=== PATIENT | male | born 1940 | race Caucasian/White ===

== ENCOUNTER 2021-11-18 11:59 | Observation (INO) ==
[2021-11-18 14:03] LABS: Basophils % 0.4 % (0.0-0.8); Eosinophils # 0.1 10*3/uL (0.0-0.87); Eosinophils % 0.5 % (0.00-10.9); Hematocrit 39.5 VOL% (42.0-52.0); Hemoglobin 13.3 GM/DL (14.0-18.0); Immature Granulocytes % 0.6 %; Immature Granulocytes Absolute 0.06 #; Lymphocytes # 2.4 10*3/uL (1.4-4.0); Lymphocytes % 25.3 % (21.2-54.2); Mean Corpuscular HGB Conc 33.7 GM/DL (32-36); Mean Corpuscular Volume 91.4 FL (87-102); Monocytes % 7.1 % (1.7-12.7); Neutrophils % 66.1 % (38.7-73.9); Platelet Count 145 T/CUMM (130-400); Red Blood Count 4.32 MC/CUMM (3.8-5.5); Red Cell Distribution Width 13.8 % (9.3-17.3); White Blood Count 9.5 T/CUMM (4-12)
[2021-11-18 14:19] LABS: Albumin 3.3 G/DL (3.4-5.0); Calcium 8.7 MG/DL (8.5-10.1); Osmolality,Calculated 276.7 MOS/KG (273-304); Potassium 4.2 MMOL/L (3.5-5.1); Total Protein 6.4 G/DL (6.4-8.2)
[2021-11-18 14:23] LABS: INR 1.1; PT Patient Result 11.7 SECS (10.5-12.0); Partial Thromboplastin Time 28.9 SECS (23.8-32.1)
[2021-11-18 16:08] LABS: Mucus,Urine Occasional /LPF (Occasional); RBC,Urine 1 /HPF (0-4); Squamous Epithelial Cell,Urine Occasional /HPF (0-10)
[2021-11-18 16:10] LABS: Bilirubin,Urine Negative (Negative); Blood, Urine Negative (Negative); Glucose,Urine (UA) Negative (Negative); Ketones,Urine Negative (Negative); Nitrite,Urine Negative (Negative); Protein,Urine Negative (Negative); Urine Appearance Clear (Clear); Urine Color Yellow (Yellow); Urine Specific Gravity 1.015 (1.001-1.035); Urine Urobilinogen 0.2 eU/dL (<2.0); Urine pH 8.5 (4.5-8.0)
[2021-11-18] MEDS ORDERED: GLUCAGON 1 MG VIAL IM PRN (17:45)
[2021-11-18] MEDS ORDERED: ACETAMINOPHEN 325 MG TABLET PO PRN (17:45)
[2021-11-18] MEDS ORDERED: ONDANSETRON 4 MG/2 ML VIAL IV PRN (17:45)
[2021-11-18] MEDS ORDERED: DEXTROSE 10% 250 ML BAG IV PRN ×2 (17:52→17:56)
[2021-11-18] MEDS ORDERED: ENOXAPARIN 40 MG/0.4 ML SYRINGE SUBCUT SCH (18:00)
[2021-11-18 18:54] LABS: Risk Ratio 3.14; Thyroid Stimulating Hormone 4.71 uIU/ml (0.358-3.74)
[2021-11-18] MEDS: DOCUSATE SODIUM 100 MG CAPSULE PO SCH (21:00)
[2021-11-18] MEDS: atenoloL 50 MG TABLET PO SCH (21:00)
[2021-11-18] MEDS: MONTELUKAST 10 MG TABLET PO SCH (21:00)
[2021-11-18] MEDS: INSULIN LISPRO 100 UNIT/ML SUBCUT SCH (21:19)
[2021-11-19 04:10] LABS: Basophils # 0.1 10*3/uL (0.0-0.2); Basophils % 0.7 % (0.0-0.8); Eosinophils # 0.2 10*3/uL (0.0-0.87); Eosinophils % 2.1 % (0.00-10.9); Hematocrit 40.8 VOL% (42.0-52.0); Hemoglobin 13.8 GM/DL (14.0-18.0); Immature Granulocytes % 0.5 %; Immature Granulocytes Absolute 0.04 #; Lymphocytes % 36.4 % (21.2-54.2); Mean Corpuscular HGB Conc 33.8 GM/DL (32-36); Mean Corpuscular Volume 91.3 FL (87-102); Mean Platelet Volume 11.1 FL (9.6-12.0); Monocytes % 7.6 % (1.7-12.7); Neutrophils % 52.7 % (38.7-73.9); Platelet Count 154 T/CUMM (130-400); Red Blood Count 4.47 MC/CUMM (3.8-5.5); White Blood Count 8.1 T/CUMM (4-12)
[2021-11-19 04:30] LABS: Osmolality,Calculated 269.2 MOS/KG (273-304)
[2021-11-19] MEDS: INSULIN LISPRO 100 UNIT/ML SUBCUT SCH ×4 (08:41→20:41)
[2021-11-19] MEDS: MULTIVITAMIN (CENTRUM) TABLET PO SCH (08:47)
[2021-11-19] MEDS: TAMSULOSIN 0.4 MG CAPSULE PO SCH (08:47)
[2021-11-19] MEDS: DOCUSATE SODIUM 100 MG CAPSULE PO SCH ×2 (08:47→21:43)
[2021-11-19] MEDS: DULoxetine 30 MG CAPSULE PO SCH (08:47)
[2021-11-19] MEDS: ASPIRIN 325 MG TABLET PO SCH (08:47)
[2021-11-19] MEDS: metFORMIN 500 MG TABLET PO SCH ×2 (08:47→16:41)
[2021-11-19] MEDS: PANTOPRAZOLE 40 MG TABLET PO SCH (08:48)
[2021-11-19] MEDS: atenoloL 50 MG TABLET PO SCH ×2 (08:48→20:40)
[2021-11-19] MEDS: allopurinoL 300 MG TABLET PO SCH (08:48)
[2021-11-19] MEDS: ATORVASTATIN 40 MG TABLET PO SCH (08:48)
[2021-11-19] MEDS: TIMOLOL 0.5% OPH SOLN 5 ML BOTTLE BOTH EYES SCH (09:18)
[2021-11-19] MEDS: MONTELUKAST 10 MG TABLET PO SCH (20:40)
[2021-11-20 05:26] LABS: Basophils # 0.1 10*3/uL (0.0-0.2); Basophils % 0.6 % (0.0-0.8); Eosinophils # 0.4 10*3/uL (0.0-0.87); Eosinophils % 3.6 % (0.00-10.9); Hematocrit 43.3 VOL% (42.0-52.0); Hemoglobin 14.6 GM/DL (14.0-18.0); Immature Granulocytes % 0.6 %; Immature Granulocytes Absolute 0.06 #; Lymphocytes # 3.8 10*3/uL (1.4-4.0); Lymphocytes % 36.9 % (21.2-54.2); Mean Corpuscular HGB Conc 33.7 GM/DL (32-36); Mean Corpuscular Volume 91.7 FL (87-102); Mean Platelet Volume 11.7 FL (9.6-12.0); Monocytes % 6.9 % (1.7-12.7); Neutrophils % 51.4 % (38.7-73.9); Platelet Count 175 T/CUMM (130-400); Red Blood Count 4.72 MC/CUMM (3.8-5.5); Red Cell Distribution Width 13.8 % (9.3-17.3); White Blood Count 10.2 T/CUMM (4-12)
[2021-11-20 05:46] LABS: Albumin 3.3 G/DL (3.4-5.0); Bilirubin,Total 1.1 MG/DL (0.20-1.00); Calcium 8.8 MG/DL (8.5-10.1); Osmolality,Calculated 272.2 MOS/KG (273-304); Potassium 4.1 MMOL/L (3.5-5.1); Total Protein 7.1 G/DL (6.4-8.2)
[2021-11-20] MEDS: INSULIN LISPRO 100 UNIT/ML SUBCUT SCH ×4 (08:13→20:50)
[2021-11-20] MEDS: metFORMIN 500 MG TABLET PO SCH ×2 (09:31→17:09)
[2021-11-20] MEDS: TAMSULOSIN 0.4 MG CAPSULE PO SCH (09:31)
[2021-11-20] MEDS: DULoxetine 30 MG CAPSULE PO SCH (09:31)
[2021-11-20] MEDS: ASPIRIN 325 MG TABLET PO SCH (09:31)
[2021-11-20] MEDS: atenoloL 50 MG TABLET PO SCH ×2 (09:31→20:49)
[2021-11-20] MEDS: PANTOPRAZOLE 40 MG TABLET PO SCH (09:31)
[2021-11-20] MEDS: MULTIVITAMIN (CENTRUM) TABLET PO SCH (09:31)
[2021-11-20] MEDS: DOCUSATE SODIUM 100 MG CAPSULE PO SCH ×2 (09:32→22:06)
[2021-11-20] MEDS: ATORVASTATIN 40 MG TABLET PO SCH (09:32)
[2021-11-20] MEDS: allopurinoL 300 MG TABLET PO SCH (09:32)
[2021-11-20] MEDS: TIMOLOL 0.5% OPH SOLN 5 ML BOTTLE BOTH EYES SCH (09:35)
[2021-11-20] MEDS: CITALOPRAM 20 MG TABLET PO SCH (11:50)
[2021-11-20] MEDS: CHOLESTYRAMINE/ASPARTAME 4 GM PACK PO SCH (14:35)
[2021-11-20] MEDS: MONTELUKAST 10 MG TABLET PO SCH (20:49)
[2021-11-20] MEDS ORDERED: QUEtiapine 25 MG TABLET PO SCH (21:00)
[2021-11-20] MEDS ORDERED: LATANOPROST 0.005% OPH SOLN 2.5 ML BOTTLE BOTH EYES SCH (21:00)
[2021-11-21 05:43] LABS: Basophils # 0.1 10*3/uL (0.0-0.2); Basophils % 0.4 % (0.0-0.8); Eosinophils # 0.4 10*3/uL (0.0-0.87); Hematocrit 41.4 VOL% (42.0-52.0); Immature Granulocytes % 0.5 %; Immature Granulocytes Absolute 0.07 #; Lymphocytes # 4.1 10*3/uL (1.4-4.0); Lymphocytes % 30.5 % (21.2-54.2); Mean Corpuscular HGB Conc 33.8 GM/DL (32-36); Mean Platelet Volume 11.7 FL (9.6-12.0); Monocytes % 6.2 % (1.7-12.7); Neutrophils % 59.4 % (38.7-73.9); Platelet Count 183 T/CUMM (130-400); Red Blood Count 4.55 MC/CUMM (3.8-5.5); Red Cell Distribution Width 13.7 % (9.3-17.3); White Blood Count 13.5 T/CUMM (4-12)
[2021-11-21 06:05] LABS: Albumin 3.4 G/DL (3.4-5.0); Bilirubin,Total 0.8 MG/DL (0.20-1.00); Calcium 9.3 MG/DL (8.5-10.1); Osmolality,Calculated 276.1 MOS/KG (273-304); Potassium 4.1 MMOL/L (3.5-5.1); Total Protein 6.8 G/DL (6.4-8.2)
[2021-11-21] MEDS: INSULIN LISPRO 100 UNIT/ML SUBCUT SCH ×2 (08:15→12:01)
[2021-11-21] MEDS: MULTIVITAMIN (CENTRUM) TABLET PO SCH (08:16)
[2021-11-21] MEDS: TAMSULOSIN 0.4 MG CAPSULE PO SCH (08:16)
[2021-11-21] MEDS: ATORVASTATIN 40 MG TABLET PO SCH (08:16)
[2021-11-21] MEDS: DULoxetine 30 MG CAPSULE PO SCH (08:16)
[2021-11-21] MEDS: metFORMIN 500 MG TABLET PO SCH (08:16)
[2021-11-21] MEDS: allopurinoL 300 MG TABLET PO SCH (08:16)
[2021-11-21] MEDS: CITALOPRAM 20 MG TABLET PO SCH (08:16)
[2021-11-21] MEDS: atenoloL 50 MG TABLET PO SCH (08:16)
[2021-11-21] MEDS: DOCUSATE SODIUM 100 MG CAPSULE PO SCH (08:17)
[2021-11-21] MEDS: TIMOLOL 0.5% OPH SOLN 5 ML BOTTLE BOTH EYES SCH (08:17)
[2021-11-21] MEDS: CHOLESTYRAMINE/ASPARTAME 4 GM PACK PO SCH (08:17)
[2021-11-21] MEDS: ASPIRIN 325 MG TABLET PO SCH (08:17)
[2021-11-21] MEDS: PANTOPRAZOLE 40 MG TABLET PO SCH (08:17)
[2021-11-21 12:04] VITALS: BP 116/56
== END 2021-11-21 13:20 | disposition home health service (06) ==
LOC: EDUNIT# → EDBD → N.ED 11:59 → N.EDINP 11:59 → N.5E 11-19 12:36
PROVIDERS: ADMIT Internal Medicine; ATTEND Internal Medicine

== ENCOUNTER 2021-12-20 15:45 | Inpatient (IN) ==
[2021-12-20] MEDS ORDERED: DEXTROSE 50% 25 GM/50 ML VIAL IV PRN (17:55)
[2021-12-20] MEDS ORDERED: DOCUSATE SODIUM 100 MG CAPSULE PO PRN (17:55)
[2021-12-20] MEDS ORDERED: GLUCAGON 1 MG VIAL IM PRN (17:55)
[2021-12-20] MEDS ORDERED: ACETAMINOPHEN 325 MG TABLET PO PRN (17:55)
[2021-12-20] MEDS ORDERED: ONDANSETRON 4 MG/2 ML VIAL IV PRN (17:55)
[2021-12-20] MEDS ORDERED: DEXTROSE 10% 250 ML BAG IV PRN (18:12)
[2021-12-20] MEDS ORDERED: ACETAMINOPHEN 500 MG TABLET PO ONE (18:32)
[2021-12-20 18:42] LABS: Basophils % 0.1 % (0.0-0.8); Eosinophils % 0.1 % (0.00-10.9); Hematocrit 45.6 VOL% (42.0-52.0); Hemoglobin 15.3 GM/DL (14.0-18.0); Immature Granulocytes % 0.6 %; Immature Granulocytes Absolute 0.09 #; Lymphocytes # 2.5 10*3/uL (1.4-4.0); Lymphocytes % 15.9 % (21.2-54.2); Mean Corpuscular HGB Conc 33.6 GM/DL (32-36); Mean Corpuscular Volume 93.4 FL (87-102); Mean Platelet Volume 11.9 FL (9.6-12.0); Monocytes # 1.4 10*3/uL (0.11-0.8); Monocytes % 8.8 % (1.7-12.7); Neutrophils % 74.5 % (38.7-73.9); Platelet Count 149 T/CUMM (130-400); Red Blood Count 4.88 MC/CUMM (3.8-5.5); Red Cell Distribution Width 14.5 % (9.3-17.3); White Blood Count 15.5 T/CUMM (4-12)
[2021-12-20 19:08] LABS: Albumin 3.2 G/DL (3.4-5.0); Bilirubin,Total 1.4 MG/DL (0.20-1.00); Calcium 8.5 MG/DL (8.5-10.1); Osmolality,Calculated 274.4 MOS/KG (273-304); Potassium 4.7 MMOL/L (3.5-5.1); Total Protein 6.6 G/DL (6.4-8.2)
[2021-12-20] MEDS: ALBUTEROL/IPRATROPIUM 3 ML NEB RESP TX SCH (20:08)
[2021-12-20] MEDS ORDERED: ENOXAPARIN 40 MG/0.4 ML SYRINGE SUBCUT SCH (21:00)
[2021-12-20] MEDS: cefTRIAXone 2,000 MG in SODIUM CHLORIDE 0.9% 100 ML IV SCH (21:28)
[2021-12-20] MEDS: atenoloL 25 MG TABLET PO SCH (21:29)
[2021-12-20] MEDS: INSULIN REGULAR 100 UNIT/ML SUBCUT SCH (21:30)
[2021-12-20] MEDS: ATORVASTATIN 40 MG TABLET PO SCH (21:37)
[2021-12-20] MEDS: LATANOPROST 0.005% OPH SOLN 2.5 ML BOTTLE BOTH EYES SCH (21:37)
[2021-12-21] MEDS: ALBUTEROL/IPRATROPIUM 3 ML NEB RESP TX SCH ×4 (00:25→18:49)
[2021-12-21 01:46] LABS: Basophils % 0.2 % (0.0-0.8); Eosinophils % 0.3 % (0.00-10.9); Hematocrit 44.1 VOL% (42.0-52.0); Immature Granulocytes % 0.5 %; Immature Granulocytes Absolute 0.07 #; Lymphocytes # 2.4 10*3/uL (1.4-4.0); Lymphocytes % 16.4 % (21.2-54.2); Mean Platelet Volume 11.5 FL (9.6-12.0); Monocytes # 1.3 10*3/uL (0.11-0.8); Monocytes % 8.7 % (1.7-12.7); Neutrophils % 73.9 % (38.7-73.9); Platelet Count 138 T/CUMM (130-400); Red Blood Count 4.74 MC/CUMM (3.8-5.5); Red Cell Distribution Width 14.5 % (9.3-17.3); White Blood Count 14.8 T/CUMM (4-12)
[2021-12-21 02:12] LABS: Osmolality,Calculated 277.5 MOS/KG (273-304); Potassium 4.7 MMOL/L (3.5-5.1); Risk Ratio 2.16; Thyroid Stimulating Hormone 5.74 uIU/ml (0.358-3.74); VLDL Cholesterol 19.8 MG/DL
[2021-12-21] MEDS ORDERED: DILTIAZEM 50 MG/10 ML VIAL IV ONE (02:46)
[2021-12-21] MEDS: SODIUM CHLORIDE 0.9% 1,000 ML IV SCH ×2 (03:05→20:48)
[2021-12-21] MEDS ORDERED: MORPHINE 2 MG/1 ML SYRINGE ONE (03:27)
[2021-12-21] MEDS: MORPHINE 2 MG/1 ML SYRINGE IV PRN (03:35)
[2021-12-21 04:11] LABS: High Sensitive Troponin I* 6.3 ng/L (0-78)
[2021-12-21] MEDS ORDERED: FUROSEMIDE 20 MG/2 ML VIAL IV ONE (07:41)
[2021-12-21 08:01] LABS: Free T4 (Free Thyroxine) 1.21 NG/DL (0.76-1.46)
[2021-12-21] MEDS ORDERED: ASPIRIN 325 MG TABLET PO SCH (09:00)
[2021-12-21] MEDS: CHOLECALCIFEROL 1,000 UNIT TABLET PO SCH (09:39)
[2021-12-21] MEDS: PANTOPRAZOLE 40 MG TABLET PO SCH (09:39)
[2021-12-21] MEDS: atenoloL 25 MG TABLET PO SCH ×2 (09:39→21:47)
[2021-12-21] MEDS: DULoxetine 30 MG CAPSULE PO SCH (09:40)
[2021-12-21] MEDS: TAMSULOSIN 0.4 MG CAPSULE PO SCH (09:40)
[2021-12-21] MEDS: MONTELUKAST 10 MG TABLET PO SCH (09:40)
[2021-12-21] MEDS: CITALOPRAM 20 MG TABLET PO SCH (09:40)
[2021-12-21] MEDS: DOXYCYCLINE HYCLATE INJ 100 MG in SODIUM CHLORIDE 0.9% 100 ML IV SCH ×2 (09:44→21:52)
[2021-12-21] MEDS: INSULIN REGULAR 100 UNIT/ML SUBCUT SCH ×4 (09:58→21:56)
[2021-12-21] MEDS: ENOXAPARIN 100 MG/ML SYRINGE SUBCUT SCH (12:17)
[2021-12-21] MEDS: COLCHICINE 0.6 MG CAPSULE PO SCH ×2 (12:17→21:40)
[2021-12-21] MEDS: IBUPROFEN 400 MG TABLET PO SCH ×3 (12:17→21:44)
[2021-12-21] MEDS: TIMOLOL 0.5% OPH SOLN 5 ML BOTTLE BOTH EYES SCH (17:14)
[2021-12-21 17:42] LABS: Bacteria,Urine Occasional /HPF (Few); Hyaline Casts,Urine 16 /LPF (0-3); Mucus,Urine Occasional /LPF (Occasional); RBC,Urine 2 /HPF (0-4); Squamous Epithelial Cell,Urine Occasional /HPF (0-10)
[2021-12-21 17:45] LABS: Urine Appearance Clear (Clear)
[2021-12-21 17:46] LABS: Bilirubin,Urine Negative (Negative); Glucose,Urine (UA) Negative (Negative); Ketones,Urine Negative (Negative); Nitrite,Urine Negative (Negative); Protein,Urine Negative (Negative); Urine Color Yellow (Yellow); Urine Urobilinogen < 2.0 eU/dL (<2.0)
[2021-12-21 17:47] LABS: Blood, Urine Trace mg/dL (Negative)
[2021-12-21] MEDS: cefTRIAXone 2,000 MG in SODIUM CHLORIDE 0.9% 100 ML IV SCH (21:38)
[2021-12-21] MEDS: ATORVASTATIN 40 MG TABLET PO SCH (21:45)
[2021-12-21] MEDS: LATANOPROST 0.005% OPH SOLN 2.5 ML BOTTLE BOTH EYES SCH (23:07)
[2021-12-22] MEDS: ALBUTEROL/IPRATROPIUM 3 ML NEB RESP TX SCH ×4 (00:20→19:00)
[2021-12-22] MEDS: MORPHINE 2 MG/1 ML SYRINGE IV PRN ×2 (01:30→21:55)
[2021-12-22] MEDS: ENOXAPARIN 100 MG/ML SYRINGE SUBCUT SCH ×2 (01:31→12:42)
[2021-12-22 05:27] LABS: Basophils % 0.2 % (0.0-0.8); Eosinophils # 0.1 10*3/uL (0.0-0.87); Eosinophils % 0.7 % (0.00-10.9); Hematocrit 41.1 VOL% (42.0-52.0); Hemoglobin 13.6 GM/DL (14.0-18.0); Immature Granulocytes % 0.7 %; Immature Granulocytes Absolute 0.09 #; Lymphocytes # 2.6 10*3/uL (1.4-4.0); Lymphocytes % 19.3 % (21.2-54.2); Mean Corpuscular HGB Conc 33.1 GM/DL (32-36); Mean Corpuscular Volume 94.3 FL (87-102); Mean Platelet Volume 12.6 FL (9.6-12.0); Monocytes % 7.8 % (1.7-12.7); Neutrophils % 71.3 % (38.7-73.9); Platelet Count 123 T/CUMM (130-400); Red Blood Count 4.36 MC/CUMM (3.8-5.5); Red Cell Distribution Width 14.4 % (9.3-17.3); White Blood Count 13.4 T/CUMM (4-12)
[2021-12-22 05:40] LABS: Calcium 8.6 MG/DL (8.5-10.1); Osmolality,Calculated 273.5 MOS/KG (273-304); Potassium 4.1 MMOL/L (3.5-5.1)
[2021-12-22] MEDS: SODIUM CHLORIDE 0.9% 1,000 ML IV SCH (07:15)
[2021-12-22] MEDS ORDERED: atenoloL 25 MG TABLET PO ONE (09:32)
[2021-12-22] MEDS: allopurinoL 300 MG TABLET PO SCH (09:58)
[2021-12-22] MEDS: INSULIN REGULAR 100 UNIT/ML SUBCUT SCH ×4 (09:58→22:40)
[2021-12-22] MEDS: ASPIRIN EC 81 MG TABLET PO SCH (09:58)
[2021-12-22] MEDS: MONTELUKAST 10 MG TABLET PO SCH (09:58)
[2021-12-22] MEDS: CITALOPRAM 20 MG TABLET PO SCH (09:58)
[2021-12-22] MEDS: COLCHICINE 0.6 MG CAPSULE PO SCH ×2 (09:59→21:43)
[2021-12-22] MEDS: CHOLECALCIFEROL 1,000 UNIT TABLET PO SCH (09:59)
[2021-12-22] MEDS: GABAPENTIN 300 MG CAPSULE PO SCH ×3 (09:59→21:42)
[2021-12-22] MEDS: IBUPROFEN 400 MG TABLET PO SCH ×3 (09:59→21:43)
[2021-12-22] MEDS: DOCUSATE SODIUM 100 MG CAPSULE PO SCH ×2 (09:59→21:42)
[2021-12-22] MEDS: atenoloL 25 MG TABLET PO SCH (09:59)
[2021-12-22] MEDS: TAMSULOSIN 0.4 MG CAPSULE PO SCH (09:59)
[2021-12-22] MEDS: PANTOPRAZOLE 40 MG TABLET PO SCH (10:00)
[2021-12-22] MEDS: DULoxetine 30 MG CAPSULE PO SCH (10:02)
[2021-12-22] MEDS: TIMOLOL 0.5% OPH SOLN 5 ML BOTTLE BOTH EYES SCH (10:06)
[2021-12-22] MEDS: DOXYCYCLINE HYCLATE INJ 100 MG in SODIUM CHLORIDE 0.9% 100 ML IV SCH ×2 (10:08→23:03)
[2021-12-22] MEDS ORDERED: INSULIN GLARGINE 100 UNIT/ML SUBCUT SCH (21:00)
[2021-12-22] MEDS: atenoloL 50 MG TABLET PO SCH (21:42)
[2021-12-22] MEDS: ATORVASTATIN 40 MG TABLET PO SCH (21:43)
[2021-12-22] MEDS: LATANOPROST 0.005% OPH SOLN 2.5 ML BOTTLE BOTH EYES SCH (21:44)
[2021-12-22] MEDS: cefTRIAXone 2,000 MG in SODIUM CHLORIDE 0.9% 100 ML IV SCH (21:45)
[2021-12-23] MEDS: ALBUTEROL/IPRATROPIUM 3 ML NEB RESP TX SCH ×4 (02:00→19:15)
[2021-12-23] MEDS: ENOXAPARIN 100 MG/ML SYRINGE SUBCUT SCH ×2 (02:05→14:08)
[2021-12-23 05:04] LABS: Basophils % 0.2 % (0.0-0.8); Eosinophils # 0.1 10*3/uL (0.0-0.87); Eosinophils % 1.3 % (0.00-10.9); Hematocrit 40.2 VOL% (42.0-52.0); Hemoglobin 13.1 GM/DL (14.0-18.0); Immature Granulocytes % 0.6 %; Immature Granulocytes Absolute 0.05 #; Lymphocytes % 22.7 % (21.2-54.2); Mean Corpuscular HGB Conc 32.6 GM/DL (32-36); Mean Corpuscular Volume 95.3 FL (87-102); Mean Platelet Volume 12.6 FL (9.6-12.0); Monocytes # 0.7 10*3/uL (0.11-0.8); Monocytes % 8.3 % (1.7-12.7); Neutrophils % 66.9 % (38.7-73.9); Platelet Count 107 T/CUMM (130-400); Red Blood Count 4.22 MC/CUMM (3.8-5.5); Red Cell Distribution Width 14.3 % (9.3-17.3); White Blood Count 8.6 T/CUMM (4-12)
[2021-12-23] MEDS: SODIUM CHLORIDE 0.9% 1,000 ML IV SCH (05:21)
[2021-12-23 05:51] LABS: Calcium 8.3 MG/DL (8.5-10.1); Osmolality,Calculated 268.8 MOS/KG (273-304); Potassium 4.3 MMOL/L (3.5-5.1)
[2021-12-23 09:17] LABS: Arterial Base Excess iSTAT -5 MMOL/L (-2.5-2.5); Arterial Bicarbonate iSTAT 20.2 MMOL/L (20-26); Arterial O2 Saturation iSTAT 92 % (95-100); Arterial PCO2 iSTAT 37 MM HG (35-48); Arterial PO2 iSTAT 67 MM HG (80-95); Arterial Total CO2 iSTAT 21 MMO/L (23-27)
[2021-12-23] MEDS: INSULIN REGULAR 100 UNIT/ML SUBCUT SCH ×4 (09:37→22:51)
[2021-12-23] MEDS: CHOLECALCIFEROL 1,000 UNIT TABLET PO SCH (09:37)
[2021-12-23] MEDS: IBUPROFEN 400 MG TABLET PO SCH ×3 (09:37→21:29)
[2021-12-23] MEDS: COLCHICINE 0.6 MG CAPSULE PO SCH ×2 (09:37→21:28)
[2021-12-23] MEDS: PANTOPRAZOLE 40 MG TABLET PO SCH (09:38)
[2021-12-23] MEDS: atenoloL 50 MG TABLET PO SCH ×2 (09:38→21:28)
[2021-12-23] MEDS: CITALOPRAM 20 MG TABLET PO SCH (09:38)
[2021-12-23] MEDS: DULoxetine 30 MG CAPSULE PO SCH (09:38)
[2021-12-23] MEDS: allopurinoL 300 MG TABLET PO SCH (09:38)
[2021-12-23] MEDS: TAMSULOSIN 0.4 MG CAPSULE PO SCH (09:38)
[2021-12-23] MEDS: DOCUSATE SODIUM 100 MG CAPSULE PO SCH ×2 (09:38→21:28)
[2021-12-23] MEDS: MONTELUKAST 10 MG TABLET PO SCH (09:39)
[2021-12-23] MEDS: GABAPENTIN 300 MG CAPSULE PO SCH ×3 (09:39→21:29)
[2021-12-23] MEDS: ASPIRIN EC 81 MG TABLET PO SCH (09:39)
[2021-12-23] MEDS: DOXYCYCLINE HYCLATE INJ 100 MG in SODIUM CHLORIDE 0.9% 100 ML IV SCH ×2 (09:43→22:52)
[2021-12-23] MEDS: TIMOLOL 0.5% OPH SOLN 5 ML BOTTLE BOTH EYES SCH (09:50)
[2021-12-23] MEDS ORDERED: FUROSEMIDE 20 MG/2 ML VIAL IV ONE ×2 (10:21→10:34)
[2021-12-23] MEDS: LEVALBUTEROL 1.25 MG/3 ML NEB RESP TX SCH ×2 (13:53→19:15)
[2021-12-23] MEDS: ATORVASTATIN 40 MG TABLET PO SCH (21:28)
[2021-12-23] MEDS: cefTRIAXone 2,000 MG in SODIUM CHLORIDE 0.9% 100 ML IV SCH (21:30)
[2021-12-23] MEDS: INSULIN GLARGINE 100 UNIT/ML SUBCUT SCH ×2 (22:51→23:36)
[2021-12-23] MEDS: LATANOPROST 0.005% OPH SOLN 2.5 ML BOTTLE BOTH EYES SCH (22:52)
[2021-12-24] MEDS: ALBUTEROL/IPRATROPIUM 3 ML NEB RESP TX SCH ×2 (00:15→07:20)
[2021-12-24] MEDS: ENOXAPARIN 100 MG/ML SYRINGE SUBCUT SCH ×2 (00:47→12:52)
[2021-12-24] MEDS: LEVALBUTEROL 1.25 MG/3 ML NEB RESP TX SCH ×4 (01:46→19:25)
[2021-12-24 04:33] LABS: Basophils % 0.2 % (0.0-0.8); Eosinophils # 0.1 10*3/uL (0.0-0.87); Eosinophils % 0.6 % (0.00-10.9); Hematocrit 37.1 VOL% (42.0-52.0); Hemoglobin 12.6 GM/DL (14.0-18.0); Immature Granulocytes % 0.7 %; Immature Granulocytes Absolute 0.07 #; Lymphocytes # 1.7 10*3/uL (1.4-4.0); Lymphocytes % 17.3 % (21.2-54.2); Mean Corpuscular Volume 92.3 FL (87-102); Mean Platelet Volume 11.9 FL (9.6-12.0); Monocytes # 0.7 10*3/uL (0.11-0.8); Monocytes % 7.4 % (1.7-12.7); Neutrophils % 73.8 % (38.7-73.9); Platelet Count 149 T/CUMM (130-400); Red Blood Count 4.02 MC/CUMM (3.8-5.5); Red Cell Distribution Width 13.9 % (9.3-17.3); White Blood Count 9.9 T/CUMM (4-12)
[2021-12-24 05:00] LABS: Calcium 8.8 MG/DL (8.5-10.1); Osmolality,Calculated 271.4 MOS/KG (273-304); Potassium 4.6 MMOL/L (3.5-5.1)
[2021-12-24] MEDS: INSULIN REGULAR 100 UNIT/ML SUBCUT SCH ×4 (08:15→21:32)
[2021-12-24] MEDS ORDERED: POLYETHYLENE GLYCOL POWDER 17 GM PACK PO SCH (09:00)
[2021-12-24] MEDS ORDERED: BISACODYL 10 MG SUPP RECTAL PRN (09:24)
[2021-12-24] MEDS ORDERED: traMADol 50 MG TABLET PO PRN (09:25)
[2021-12-24] MEDS: TAMSULOSIN 0.4 MG CAPSULE PO SCH (09:35)
[2021-12-24] MEDS: DULoxetine 30 MG CAPSULE PO SCH (09:35)
[2021-12-24] MEDS: MONTELUKAST 10 MG TABLET PO SCH (09:35)
[2021-12-24] MEDS: IBUPROFEN 400 MG TABLET PO SCH ×3 (09:36→21:30)
[2021-12-24] MEDS: ASPIRIN EC 81 MG TABLET PO SCH (09:36)
[2021-12-24] MEDS: PANTOPRAZOLE 40 MG TABLET PO SCH (09:36)
[2021-12-24] MEDS: allopurinoL 300 MG TABLET PO SCH (09:36)
[2021-12-24] MEDS: atenoloL 50 MG TABLET PO SCH ×2 (09:36→21:30)
[2021-12-24] MEDS: DOCUSATE SODIUM 100 MG CAPSULE PO SCH ×2 (09:36→21:29)
[2021-12-24] MEDS: COLCHICINE 0.6 MG CAPSULE PO SCH ×2 (09:37→21:29)
[2021-12-24] MEDS: GABAPENTIN 300 MG CAPSULE PO SCH ×3 (09:37→21:30)
[2021-12-24] MEDS: CHOLECALCIFEROL 1,000 UNIT TABLET PO SCH (09:37)
[2021-12-24] MEDS: CITALOPRAM 20 MG TABLET PO SCH (09:37)
[2021-12-24] MEDS: TIMOLOL 0.5% OPH SOLN 5 ML BOTTLE BOTH EYES SCH (09:40)
[2021-12-24] MEDS ORDERED: lisinopriL 5 MG TABLET PO SCH (10:00)
[2021-12-24] MEDS: DOXYCYCLINE HYCLATE INJ 100 MG in SODIUM CHLORIDE 0.9% 100 ML IV SCH ×2 (11:57→23:57)
[2021-12-24] MEDS: FUROSEMIDE 40 MG/4 ML VIAL IV SCH (12:53)
[2021-12-24] MEDS: methylPREDNISolone SOD SUC 40 MG/1 ML VIAL IV SCH (17:12)
[2021-12-24] MEDS: INSULIN GLARGINE 100 UNIT/ML SUBCUT SCH (21:30)
[2021-12-24] MEDS: ATORVASTATIN 40 MG TABLET PO SCH (21:30)
[2021-12-24] MEDS: POLYETHYLENE GLYCOL POWDER 17 GM PACK PO SCH (21:31)
[2021-12-24] MEDS: cefTRIAXone 2,000 MG in SODIUM CHLORIDE 0.9% 100 ML IV SCH (21:31)
[2021-12-24] MEDS: LATANOPROST 0.005% OPH SOLN 2.5 ML BOTTLE BOTH EYES SCH (23:57)
[2021-12-25] MEDS: LEVALBUTEROL 1.25 MG/3 ML NEB RESP TX SCH ×3 (01:41→12:14)
[2021-12-25] MEDS: methylPREDNISolone SOD SUC 40 MG/1 ML VIAL IV SCH (02:42)
[2021-12-25] MEDS: ENOXAPARIN 100 MG/ML SYRINGE SUBCUT SCH (02:42)
[2021-12-25 05:03] LABS: Basophils % 0.1 % (0.0-0.8); Hematocrit 35.3 VOL% (42.0-52.0); Hemoglobin 11.8 GM/DL (14.0-18.0); Immature Granulocytes % 0.8 %; Immature Granulocytes Absolute 0.06 #; Lymphocytes # 0.8 10*3/uL (1.4-4.0); Lymphocytes % 11.6 % (21.2-54.2); Mean Corpuscular HGB Conc 33.4 GM/DL (32-36); Mean Corpuscular Volume 91.2 FL (87-102); Mean Platelet Volume 11.7 FL (9.6-12.0); Monocytes # 0.4 10*3/uL (0.11-0.8); Neutrophils % 82.5 % (38.7-73.9); Platelet Count 147 T/CUMM (130-400); Red Blood Count 3.87 MC/CUMM (3.8-5.5); Red Cell Distribution Width 13.9 % (9.3-17.3); White Blood Count 7.1 T/CUMM (4-12)
[2021-12-25 05:20] LABS: Osmolality,Calculated 270.7 MOS/KG (273-304); Potassium 3.9 MMOL/L (3.5-5.1)
[2021-12-25] MEDS ORDERED: APIXABAN 5 MG TABLET PO SCH (09:00)
[2021-12-25] MEDS ORDERED: lisinopriL 10 MG TABLET PO SCH (09:00)
[2021-12-25] MEDS: INSULIN REGULAR 100 UNIT/ML SUBCUT SCH (10:30)
[2021-12-25] MEDS: DOXYCYCLINE HYCLATE INJ 100 MG in SODIUM CHLORIDE 0.9% 100 ML IV SCH (10:31)
[2021-12-25] MEDS: POLYETHYLENE GLYCOL POWDER 17 GM PACK PO SCH (10:31)
[2021-12-25] MEDS: FUROSEMIDE 40 MG/4 ML VIAL IV SCH (10:31)
[2021-12-25] MEDS: DULoxetine 30 MG CAPSULE PO SCH (10:32)
[2021-12-25] MEDS: MONTELUKAST 10 MG TABLET PO SCH (10:32)
[2021-12-25] MEDS: PANTOPRAZOLE 40 MG TABLET PO SCH (10:32)
[2021-12-25] MEDS: DOCUSATE SODIUM 100 MG CAPSULE PO SCH (10:32)
[2021-12-25] MEDS: CITALOPRAM 20 MG TABLET PO SCH (10:33)
[2021-12-25] MEDS: TAMSULOSIN 0.4 MG CAPSULE PO SCH (10:33)
[2021-12-25] MEDS: ASPIRIN EC 81 MG TABLET PO SCH (10:33)
[2021-12-25] MEDS: GABAPENTIN 300 MG CAPSULE PO SCH ×2 (10:33→17:05)
[2021-12-25] MEDS: atenoloL 50 MG TABLET PO SCH (11:08)
[2021-12-25] MEDS: allopurinoL 300 MG TABLET PO SCH (11:09)
[2021-12-25] MEDS: TIMOLOL 0.5% OPH SOLN 5 ML BOTTLE BOTH EYES SCH (11:09)
[2021-12-25] MEDS: CHOLECALCIFEROL 1,000 UNIT TABLET PO SCH (11:09)
[2021-12-25 16:14] VITALS: BP 130/66
[2021-12-26] MEDS ORDERED: predniSONE 20 MG TABLET PO SCH (09:00)
== END 2021-12-25 18:25 | disposition home health service (06) | DRG 194 ==
LOC: N.TELES → SUATTDRO 17:30
PROVIDERS: ADMIT Internal Medicine; ATTEND Internal Medicine